=== PATIENT | female | born 2000 | race Two or more races ===

== ENCOUNTER 2019-11-17 22:55 | Emergency (ER) | payer MEDICAID ==
--- NOTE | 2019-11-17 23:35 | ER Document Report ---
ED Medical Screen (RME) - General Chief Complaint: Vag Bleeding, +preg <12wks Stated Complaint: VAGINAL BLEEDING Notes: Patient is a 19-year-old female who is G1, P0 at approximately 6 weeks gestation who presents to the emergency department with a chief complaint of vaginal bleeding for the past week. She states that initially started off as a light spotting of pink discharge. She states over the past week it is gradually worsened to become a darker blood with some clots. States she is now having some cramping in the lower abdomen/pelvic region. She states she was told to come here for evaluation. She is not had any OB care yet. Denies any urinary complaints, nausea, vomiting, diarrhea, constipation or fever. I have treated and performed a rapid initial assessment of this patient. A comprehensive ED assessment and evaluation of the patient, analysis of test results and completion of medical decision making process will be conducted by additional ED providers. PHYSICAL EXAMINATION: GENERAL: Well-appearing, well-nourished and in no acute distress. A&Ox4. Answers questions appropriately. Physical Exam - Vital signs Vitals: Temp Pulse Resp BP Pulse Ox 97.9 F 112 H 14 118/54 L 98 11/17/19 23:00 11/17/19 23:00 11/17/19 23:00 11/17/19 23:00 11/17/19 23:00 Course - Vital Signs Vital signs: Temp Pulse Resp BP Pulse Ox 97.9 F 112 H 14 118/54 L 98 11/17/19 23:00 11/17/19 23:00 11/17/19 23:00 11/17/19 23:00 11/17/19 23:00
[2019-11-18 01:03] LABS: ABSOLUTE BASOPHILS # (AUTO) 0.1 10^3/uL (0.0-0.2); ABSOLUTE EOSINOPHILS # (AUTO) 0.3 10^3/uL (0.0-0.6); EOSINOPHILS % (AUTO) 2.4 % (0-6); HEMOGLOBIN 12.7 g/dL (12.0-15.5); PLATELET COUNT 252 10^3/uL (150-450); TOTAL CELLS COUNTED % (AUTO) 100 %
[2019-11-18 01:06] LABS: APPEARANCE,URINE SLIGHTLY-CLOUDY; BILIRUBIN,URINE NEGATIVE (NEGATIVE); COLOR,URINE YELLOW; GLUCOSE, URINE NEGATIVE (NEGATIVE); KETONES,URINE NEGATIVE (NEGATIVE); PROTEIN,URINE NEGATIVE (NEGATIVE); URINE SPECIFIC GRAVITY 1.025; UROBILINOGEN,URINE NEGATIVE mg/dL (<2.0)
[2019-11-18 01:09] LABS: ABSOLUTE LYMPHOCYTES (AUTO) 3.1 10^3/uL (0.5-4.7); ABSOLUTE MONOCYTES (AUTO) 0.8 10^3/uL (0.1-1.4); ABSOLUTE NEUT (AUTO) 7.5 10^3/uL (1.7-8.2); BASOPHILS % (AUTO) 0.5 % (0-2); HEMATOCRIT 36.9 % (36.0-47.0); LYMPHOCYTES % (AUTO) 26.5 % (13-45); MEAN CORPUSCULAR HEMOGLOBIN 29.3 pg (27.0-33.4); MEAN CORPUSCULAR HGB CONC 34.4 g/dL (32.0-36.0); MEAN CORPUSCULAR VOLUME 85 fl (80-97); MONOCYTES % (AUTO) 6.5 % (3-13); RED BLOOD COUNT 4.35 10^6/uL (3.72-5.28); RED CELL DISTRIBUTION WIDTH 13.3 % (11.5-14.0); SEGMENTED NEUTROPHILS % (AUTO) 64.1 % (42-78); WHITE BLOOD COUNT 11.8 10^3/uL (4.0-10.5)
[2019-11-18 01:17] LABS: ALBUMIN 4.5 g/dL (3.5-5.0); ALKALINE PHOSPHATASE 56 U/L (38-126); ANION GAP 6 (5-19); ASPARTATE AMINO TRANSFERASE 29 U/L (14-36); BILIRUBIN,TOTAL 0.2 mg/dL (0.2-1.3); BLOOD UREA NITROGEN 17 mg/dL (7-20); CALCIUM 9.9 mg/dL (8.4-10.2); CARBON DIOXIDE 26 mmol/L (22-30); CHLORIDE 104 mmol/L (98-107); GLUCOSE 83 mg/dL (75-110); POTASSIUM 4.4 mmol/L (3.6-5.0); TOTAL PROTEIN 7.4 g/dL (6.3-8.2)
--- NOTE | 2019-11-18 02:23 | ER Document Report ---
ED GI/ - General Chief Complaint: Vaginal Bleeding Stated Complaint: VAGINAL BLEEDING Time Seen by Provider: 11/18/19 01:34 Primary Care Provider: [facility] [Provider Group] - 11/20/19 Notes: Patient is a 19-year-old female, G1, P0 at 7 weeks gestation by last menstrual period, that comes emergency department for chief complaint of vaginal bleeding and lower abdominal cramping. She states bleeding started lately almost a week ago but since night she has had increased bleeding with occasional passage of clots. She denies passing tissue. She denies any current pain. She had a positive test but has not had an ultrasound yet. She is on vitamins, takes no daily medications, denies any surgeries or medical history. - Related Data Allergies/Adverse Reactions: No Known Allergies Allergy (Unverified 11/17/19 23:36) Past Medical History - General Information source: Patient Last Menstrual Period: 09/24/2019 - Social History Smoking Status: Never Smoker Chew tobacco use (# tins/day): No Frequency of alcohol use: None Drug Abuse: None Lives with: Family Family History: Reviewed & Not Pertinent Patient has suicidal ideation: No Patient has homicidal ideation: No - Medical History Medical History: Negative Surgical Hx: Negative - Immunizations Immunizations up to date: Yes Hx Diphtheria, Pertussis, Tetanus Vaccination: Yes Review of Systems - Review of Systems Constitutional: No symptoms reported EENT: No symptoms reported Cardiovascular: No symptoms reported Respiratory: No symptoms reported Gastrointestinal: See HPI Genitourinary: No symptoms reported Female Genitourinary: See HPI Musculoskeletal: No symptoms reported Skin: No symptoms reported Hematologic/Lymphatic: No symptoms reported Neurological/Psychological: No symptoms reported Physical Exam - Vital signs Vitals: Temp Pulse Resp BP Pulse Ox 97.9 F 112 H 14 118/54 L 98 11/17/19 23:00 11/17/19 23:00 11/17/19 23:00 11/17/19 23:00 11/17/19 23:00 - Notes Notes: GENERAL: Alert, interacts well. No acute distress. HEAD: Normocephalic, atraumatic. EYES: Pupils equal, round, and reactive to light. Extraocular movements intact. ENT: Oral mucosa moist, tongue midline. Oropharynx unremarkable. Airway patent. LUNGS: Clear to auscultation bilaterally, no wheezes, rales, or rhonchi. No respiratory distress. Non-tender chest wall. HEART: Regular rate and rhythm. No murmur ABDOMEN: Soft, non-tender. Non-distended. Bowel sounds present in all 4 quadrants. GENITOURINARY: Deferred EXTREMITIES: Moves all 4 extremities spontaneously. No edema, normal radial and dorsalis pedis pulses bilaterally. No cyanosis. BACK: no cervical, thoracic, lumbar midline tenderness. No saddle anesthesia, normal distal neurovascular exam. Moves all extremities in full range of motion. NEUROLOGICAL: Alert and oriented x3. Normal speech. Cranial nerves II through XII grossly intact. Strength 5/5 in all extremities. PSYCH: Slightly anxious but otherwise well-appearing SKIN: Warm, dry, normal turgor. No rashes or lesions noted. Course - Re-evaluation Re-evalutation: Patient has a soft benign abdomen, she is well-appearing, she reports she is bleeding very minimally now. Vital signs unremarkable. CBC, chemistry un remarkable. hCG is in the 1999's. RhoGam is not indicated. Urinalysis nonspecific with some blood. Ultrasound showing intrauterine at 5 weeks and 3 days, still too early to tell. I discussed with patient how this could be a normal developing with being at risk from the bleeding, I also discussed how this could proceed to a miscarriage. Patient asymptomatic on reevaluation. Patient was provided with copy of her reports and lab, she will have referral to [facility] and prescription for repeat hCG if needed, discussed return precautions in detail. Patient states appreciation and agreement. Stable at time of discharge. - Vital Signs Vital signs: Temp Pulse Resp BP Pulse Ox 98.1 F 78 16 114/80 100 11/18/19 03:58 11/18/19 03:58 11/18/19 03:58 11/18/19 03:58 11/18/19 03:58 - Laboratory Result Diagrams: 11/18/19 00:40 11/18/19 00:40 Laboratory results interpreted by me: 11/18/19 11/18/19 11/18/19 00:40 00:40 00:50 WBC 11.8 H Sodium 135.9 L ALT 38 H Beta HCG, Quant 2163.50 H Urine Blood LARGE H Discharge - Discharge Clinical Impression: Vaginal bleeding affecting early Condition: Stable Disposition: HOME, SELF-CARE Additional Instructions: You have an early in the uterus measuring 5 weeks 4 days with no obvious abnormality. It is uncertain at this point if you have progressed with a normal or if this will develop into a miscarriage. I recommend pelvic rest (avoid any significant physical activity including lifting, jumping, running, sexual intercourse, etc.), follow close with [facility], recommendation is to have your hCG repeated in about 72 hours. Alternatively you can use the provided prescription or return here. Return if you worsen including severe pain, heavy bleeding/dizziness/passing out, fever, or any other concerning symptoms. Forms: Follow-Up Laboratory Testing Referrals: [facility] [Provider Group] - 11/20/19
--- NOTE | 2019-11-18 02:25 | RADIOLOGY REPORT (SQ) ---
CLINICAL HISTORY: preg, bleeding COMPARISON: None. TECHNIQUE: US TRANSVAGINAL 11/17/2019 11:34 PM CDT FINDINGS: The uterus measures 8.3 cm. Gestational sac is seen measuring 8 mm. This corresponds to five weeks four days. pole or yolk sac are not seen. Both ovaries are normal in size with patent flow. There is no free fluid. IMPRESSION: Early intrauterine gestational sac.
[2019-11-18 03:58] VITALS: BP 114/80
== END 2019-11-18 03:56 | disposition home or self-care (01) ==
LOC: ER 22:55
DX: O20.9 Hemorrhage in early pregnancy, unspecified (principal); O26.891 Other specified pregnancy related conditions, first trimester; R10.30 Lower abdominal pain, unspecified; Z3A.01 Less than 8 weeks gestation of pregnancy; Z79.899 Other long term (current) drug therapy
CPT/HCPCS: 36415; 76817; 80053; 81001; 84702; 85025; 86900; 86901; 93976; 99284